=== PATIENT | male | born 2000 | race Caucasian/White ===

== ENCOUNTER 2018-10-10 19:18 | Emergency (ER) | payer OTHER ==
[2018-10-10 19:33] VITALS: BP 117/72; PULSE 71; TEMP 98; BMI 40.1
[2018-10-10] MEDS ORDERED: ACETAMINOPHEN 500 MG TABLET (FP) PO ONE (20:05)
--- NOTE | 2018-10-10 20:12 | PDOC ---
History of Present Illness - General Chief Complaint: Headache Stated Complaint: Headache Time Seen by Provider: 10/10/18 20:03 - History of Present Illness Initial Comments: 10/10/18 20:05 18-year-old male with headache 2 days no systemic symptoms. Headache exacerbated with light and its positional increased when he bends down and leans forward. No prior headaches like this in the past he's taken Motrin without much relief Past History - Past Medical History Allergies/Adverse Reactions: Allergies Allergy/AdvReac Type Severity Reaction Status Date / Time No Known Allergies Allergy Verified 10/10/18 19:33 Home Medications: Ambulatory Orders NK [No Known Home Medication] 10/10/18 - Suicide/Smoking/Psychosocial Hx Smoking History: Never smoked Have you smoked in the past 12 months: No Information on smoking cessation initiated: No Hx Alcohol Use: No Drug/Substance Use Hx: No Review of Systems - Review of Systems Constitutional: No: Fever HEENTM: Yes: Eye Pain Neurological: Yes: Headache *Physical Exam - Vital Signs Last Vital Signs Temp Pulse Resp BP Pulse Ox 98.0 F 71 18 117/72 99 10/10/18 19:28 10/10/18 19:28 10/10/18 19:28 10/10/18 19:28 10/10/18 19:28 - Physical Exam Comments: 10/10/18 20:06 HEAD: NC/AT EYES: Conjuntiva clear, EOMI PERRL Ears: Canals and TM's normal NOSE: No d/c THROAT: Moist mucous membrances, oral pharanx clear, uvula midline NECK: Supple without adenopathy CARDIAC: S1 S2 LUNGS: CTA Full and Equal breath sounds ABDOMEN: Soft NT ND MS: Full ROM in all joints without edema NEUROLOGIC: No gross sensory or motor deficits, NVID SKIN: Normal color and temperature no lesions or rashes Moderate Sedation - Procedure Monitoring Vital Signs: Procedure Monitoring Vital Signs Temperature 98.0 F 10/10/18 19:28 Pulse Rate 71 10/10/18 19:28 Respiratory Rate 18 10/10/18 19:28 Blood Pressure 117/72 10/10/18 19:28 O2 Sat by Pulse Oximetry (%) 99 10/10/18 19:28 ED Treatment Course - RADIOLOGY Radiology Studies Ordered: Category Date Time Status HEAD CT WITHOUT CONTRAST [CT] Stat CT Scan 10/10/18 20:05 Ordered Medical Decision Making - Medical Decision Making 10/10/18 20:50 CT negative, pt feeling better and tolerating PO *DC/Admit/Observation/Transfer Diagnosis at time of Disposition: Headache - Discharge Dispostion Disposition: HOME Condition at time of disposition: Improved Decision to Admit order: No - Referrals Referrals: Giovani Franks MD [Primary Care Provider] - Killian Pink DO [Staff Physician] - - Patient Instructions Printed Discharge Instructions: DI for Headache Additional Instructions: Return to the emergency room should symptoms worsen or go unresolved take Tylenol Feer headache as directed follow-up with neurology in 2-3 days for further evaluation and treatment options - Post Discharge Activity
[2018-10-10] MEDS ORDERED: ACETAMINOPHEN 500 MG TABLET (FP) ONE (20:13)
== END 2018-10-10 20:57 | disposition home or self-care (01) ==
LOC: JERFT 19:18
DX: R51 Headache (principal)
CPT/HCPCS: 70450-TC; 99281-25